=== PATIENT | male | born 1950 | race Caucasian/White ===

== ENCOUNTER → 2021-02-02 | Day surgery (SDC) | payer MEDICARE, OTHER ==
[~2021-02-02] MED LIST: KRILL OIL500 MG PO; PRINIVIL20 MG PO; VITAMIN B-125000 MC2 PO
[2021-02-02 08:11] LABS: HCT 45.5 % (42.0-52.0); HGB 15.8 g/dl (13.2-18.0); MCH 29.1 pg (25.0-31.0); MCHC 34.7 g/dL (32.0-36.0); MCV 83.8 fL (78.0-100.0); MPV 10.3 fL (6.0-9.5); RBC 5.43 M/uL (4.70-6.00)
[2021-02-02 08:33] LABS: ALBUMIN 4.3 g/dL (3.4-5.0); BILIRUBIN - TOTAL 0.8 mg/dL (0.2-1.0); BUN/CREAT RATIO (CALC) 16.3 RATIO; CREATININE 0.92 mg/dL (0.67-1.17); GLOBULIN (CALCULATION) 3.8 g/dL; POTASSIUM 4.4 mmol/L (3.5-5.1); TOTAL PROTEIN 8.1 g/dL (6.4-8.2)
== END | disposition home or self-care (01) ==
LOC: FAS 07:30
PROVIDERS: Surgery
DX: K57.31 Diverticulosis of large intestine without perforation or abscess with bleeding (principal); K58.9 Irritable bowel syndrome, unspecified; I10 Essential (primary) hypertension; M19.90 Unspecified osteoarthritis, unspecified site; Z79.899 Other long term (current) drug therapy
CPT/HCPCS: 36415; 80053; J1610; J2704; J7120